=== PATIENT | female | born 1960 | race Caucasian/White ===

== ENCOUNTER 2024-05-20 09:43 | Outpatient (RCR) | payer MEDICARE, MEDICAID, SELFPAY ==
[2024-05-17 12:13] LABS: Basophils # (Auto) 0.1 Thou/mm3 (0.0-0.2); Basophils % (Auto) 1 % (0-2.5); Eosinophils # (Auto) 0.3 Thou/mm3 (0.0-0.5); Eosinophils % (Auto) 3 % (0-10); Hematocrit 40.7 % (36.0-46.0); Hemoglobin 13.5 g/dL (12.0-16.0); Immature Granulocytes % (Auto) 0 % (0-0); Immature Granulocytes Auto 0.02 Thou/mm3 (0.00-0.00); Lymphocytes # (Auto) 1.8 Thou/mm3 (1.0-4.8); Lymphocytes % (Auto) 24 % (10-50); Mean Corpuscular HGB Conc 33.2 g/dl (31.0-37.0); Mean Corpuscular Hemoglobin 29.9 pg (25.0-35.0); Mean Corpuscular Volume 90 fL (80-100); Monocytes # (Auto) 0.6 Thou/mm3 (0.0-0.8); Monocytes % (Auto) 8 % (0-12); Neutrophils # (Auto) 4.7 Thou/mm3 (1.8-7.7); Neutrophils % (Auto) 63 % (37-80); Nucleated Red Blood Cell % 0 /100 WBC (0); Platelet Count 239 Thou/mm3 (140-440); Red Blood Count 4.51 Miln/mm3 (4.00-5.20); White Blood Count 7.4 Thou/mm3 (3.6-11.0)
[2024-05-17 12:31] LABS: Alanine Aminotransferase 19 U/L (10-49); Albumin, Serum 4.7 gm/dL (3.4-4.8); Alkaline Phosphatase 73 U/L (46-116); Anion Gap 8 (7-16); Aspartate Amino Transferase 28 U/L (0-34); BUN/Creatinine Ratio 16 Ratio (12-20); Bilirubin,Total 0.6 mg/dL (0.3-1.2); Blood Urea Nitrogen 26 mg/dL (9-23); Carbon Dioxide 24.3 mMol/L (20.0-31.0); Chloride 105 mMol/L (98-107); Creatinine (Component) 1.6 mg/dL (0.6-1.3); Globulin 2.4 gm/dL (2.3-3.5); Glucose 83 mg/dL (74-106); LDH (Lactate Dehydrogenase) 246 U/L (120-246); Osmolality,Calculated 277 (275-295); Potassium 3.9 mMol/L (3.4-5.1); Sodium 137 mMol/L (136-145); Total Protein 7.1 gm/dL (5.7-8.2); eGFR 36 See Note
[2024-05-17 13:40] LABS: Sed Rate (ESR) 17 mm/hr (0-30)
== END 2024-06-15 23:59 | disposition home or self-care (01) ==
LOC: SCTC 09:43
PROVIDERS: PCP Physician Assistant Medical; Referring Provider Internal Medicine Hematology & Oncology; Visit Provider Internal Medicine Hematology & Oncology
DX: Z08 Encounter for follow-up examination after completed treatment for malignant neoplasm (principal); Z85.72 Personal history of non-Hodgkin lymphomas; Z92.21 Personal history of antineoplastic chemotherapy
CPT/HCPCS: 36591; 80053; 83615; 85025; 85652; 99212; A4216; J1642; G0463

== ENCOUNTER 2024-11-18 10:19 | Outpatient (RCR) | payer MEDICARE, MEDICAID, SELFPAY ==
[2024-11-15 10:45] LABS: Basophils # (Auto) 0.1 Thou/mm3 (0.0-0.2); Basophils % (Auto) 1 % (0-2.5); Eosinophils # (Auto) 0.4 Thou/mm3 (0.0-0.5); Eosinophils % (Auto) 6 % (0-10); Hematocrit 38.6 % (36.0-46.0); Hemoglobin 13.2 g/dL (12.0-16.0); Immature Granulocytes % (Auto) 0 % (0-0); Immature Granulocytes Auto 0.01 Thou/mm3 (0.00-0.00); Lymphocytes # (Auto) 1.5 Thou/mm3 (1.0-4.8); Lymphocytes % (Auto) 22 % (10-50); Mean Corpuscular HGB Conc 34.2 g/dl (31.0-37.0); Mean Corpuscular Hemoglobin 30.8 pg (25.0-35.0); Mean Corpuscular Volume 90 fL (80-100); Monocytes # (Auto) 0.7 Thou/mm3 (0.0-0.8); Monocytes % (Auto) 10 % (0-12); Neutrophils # (Auto) 4.2 Thou/mm3 (1.8-7.7); Neutrophils % (Auto) 61 % (37-80); Nucleated Red Blood Cell % 0 /100 WBC (0); Platelet Count 212 Thou/mm3 (140-440); RDW Standard Deviation 44.6 fL (36.4-46.3); Red Blood Count 4.29 Miln/mm3 (4.00-5.20); White Blood Count 6.9 Thou/mm3 (3.6-11.0)
[2024-11-15 11:20] LABS: Alanine Aminotransferase 22 U/L (10-49); Albumin, Serum 4.4 gm/dL (3.4-4.8); Albumin/Globulin Ratio 1.8 (1.2-2.2); Alkaline Phosphatase 78 U/L (46-116); Anion Gap 10 (7-16); Aspartate Amino Transferase 28 U/L (0-34); BUN/Creatinine Ratio 15 Ratio (12-20); Bilirubin,Total 0.8 mg/dL (0.3-1.2); Blood Urea Nitrogen 25 mg/dL (9-23); Calcium 9.3 mg/dL (8.3-10.6); Calcium (Corrected) 9.3 mg/dL (8.5-10.1); Carbon Dioxide 25.2 mMol/L (20.0-31.0); Chloride 106 mMol/L (98-107); Creatinine (Component) 1.7 mg/dL (0.6-1.3); Globulin 2.4 gm/dL (2.3-3.5); Glucose 95 mg/dL (74-106); LDH (Lactate Dehydrogenase) 256 U/L (120-246); Osmolality,Calculated 285 (275-295); Sodium 141 mMol/L (136-145); Total Protein 6.8 gm/dL (5.7-8.2); Uric Acid 8.2 mg/dL (3.1-7.8); eGFR 33 See Note
--- NOTE | 2024-11-18 15:48 | CTCFLWUP_ITS ---
Patient: TRACY MALLORY : 1960 Page 2 of 2 FOLLOW UP NOTE DATE OF SERVICE: 11/18/2024 NAME: TRACY MALLORY ACCOUNT: [id number] : 1960 AGE: 64 INTERVAL HISTORY: Visit summary Tracy Mallory, a patient with non-Hodgkin lymphoma diagnosed in 2005 and 2010, presented for routine follow-up. Her history includes treatment with R-CHOP, bendamustine, and Rituxan, with severe reactions to Rituxan requiring slow administration. She has been in remission for 14 years with no new lymphoma symptoms. She has a chemoport placed in 2010 that requires flushing every 6 months. 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 The plan includes continued port maintenance, monitoring for lymphoma symptoms, and follow-up in 6 months. Chief Complaint Routine follow-up for non-Hodgkin lymphoma in remission, port maintenance History of Present Illness Tracy Mallory is a patient with a history of non-Hodgkin lymphoma, diagnosed in 2005 and 2010, who presents for follow-up. The patient is currently in remission for 14 years after treatment with chemotherapy, including R-CHOP, bendamustine, and Rituxan. The patient reports no new lymphoma symptoms such as night sweats, appetite changes, or weight loss. They have a chemoport that was placed in 2010, which is flushed every 6 months. The port does not cause any discomfort, but the patient is aware of the potential risks associated with long-term port placement, including blood clots and infections. The patient has a history of severe reactions to Rituxan, including shivering. They are also followed by a caretaker grounds, Dr. Engel, due to high potassium levels and dietary restrictions related to kidney function, which may be a result of previous chemotherapy effects. The patient's veins were damaged before port placement, making the port a safer option for chemotherapy administration. The patient's overall health status appears stable, with no reported changes in functioning or new symptoms. They continue to adhere to their follow-up schedule and port maintenance regimen. Medical History - Non-Hodgkin lymphoma, diagnosed in 2010 - Non-Hodgkin lymphoma, diagnosed in 2005 - Kidney function issues due to chemotherapy effects - High potassium levels Surgical History - Chemoport placement in 2010 Medications and Supplements - R-CHOP - Used for non-Hodgkin lymphoma treatment in 2005 and 2011 - Bendamustine - Used for non-Hodgkin lymphoma treatment - Rituxan - Used for non-Hodgkin lymphoma treatment - Severe reactions including shivering - Administered slowly over 6 hours to prevent reactions Allergies - Rituxan (rituximab) causes severe reactions, including shivering Social History - Diet: Follows dietary restrictions due to high potassium levels Review of Systems General: Negative for night sweats, appetite changes, weight loss. ONCOLOGY HISTORY: DIAGNOSIS: History of non-Hodgkin's lymphoma (November 2005), (2010), she was treated chemotherapy both times. CRF with a creatinine of 1.5 and EGFR of 39. Currently being followed by Dr. Koehler REASON FOR TODAY?S VISIT: This is office follow-up visit. Ms. Mallory is here at [facility]. She is clinically doing very well. Denies any complaints. Denies any cough, chest pain, abdominal pain or leg cramps. [facility] According to Ms. Mallory they are normal. She denies any fevers or night sweats. Denies any weight loss or loss of appetite. Again she refused to have screening colonoscopy. She gets Chemo-Port flushed every 3 months. Wants to keep the Chemo-Port. DATE OF DIAGNOSIS: STAGE/TNM: TREATMENT HISTORY: Care?Plan Start?Date Cycle Day Intent HISTORY OF PRESENT ILLNESS: Tracy Mallory is a 64-year-old ENG speaking Unknown female with following history. November 2005: She was diagnosed with non-Hodgkin's lymphoma presented as a mass lesion in the left groin. Patient was treated with R-CHOP chemotherapy. 2010: Patient was found to have recurrence of her low-grade lymphoma/chronic lymphocytic leukemia in the right side of the neck. She was treated with Bendamustine and rituximab. Since then she was advised to keep her Chemo-Port. She was getting Chemo-Port flushes every 3 months in [place]. Recently due to insurance changes she made an appointment in our clinic for Chemo-Port flush. 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 amlodipine - 5 mg 1 tab Daily 2. cyanocobalamin (vitamin B-12) - 1,000 mcg 1 tab Daily 3. Lokelma - 10 gram 1 As directed 4. Proventil - 1 As directed 5. Clotilde-Maximino - 0.8 mg 1 tab Daily 6. simvastatin - 20 mg 1 tab Daily 7. sodium bicarbonate - 325 mg 1 tab Twice a Day 8. Vitamin D2 - 1,250 mcg (50,000 unit) 1 Capsule Monthly 9. zinc - 50 mg 1 tab Daily Medications Last Reconciled by Sada Pozo MA on 11/18/2024 ALLERGIES: No Known Drug Allergies REVIEW OF SYSTEMS: A complete 14-point review of systems was performed and is negative except as noted in interval history. PHYSICAL EXAMINATION: VITAL SIGNS: Temperature?98, B/P?170/107, Oxygen?Saturation?97% Weight?152?lbs (Change?since?11/15/24:?-0.4?lbs) PAIN: 0 - No pain ECOG Performance Status: 0 - Asymptomatic and fully active GENERAL APPEARANCE: Appears well, in no apparent distress, appropriately interactive. HEENT: Normocephalic, no temporal wasting, normal conjunctiva, no scleral icterus, normal hearing, lips without lesions, neck normal range of motion. CARDIOVASCULAR: Not assessed. PULMONARY: Normal respiratory effort, no respiratory distress or use of accessory muscles, speaking in full sentences, no tachypnea. EXTREMITIES: No pedal edema or cyanosis. SKIN: Normal skin appearance. NEUROLOGIC: Alert and oriented x4. PSHYCHIATRIC: Appropriate affect, mood normal, behavior normal, intact thought and speech. No lymphadenopathy LABORATORY DATA: I have personally reviewed and interpreted each of the patient?s relevant lab tests, abnormal findings are below: Date 05/17/24 11/15/24 ??WHITE?BLOOD?COUNT?(Thou/mm3) ? 6.9 ??RED?BLOOD?COUNT?(Miln/mm3) ? 4.29 ??HEMOGLOBIN?(gm/dl) ? 13.2 ??HEMATOCRIT?(%) ? 38.6 ??PLATELET?COUNT?(Thou/mm3) ? 212 ??NEUTROPHILS?%,?AUTO?(%) ? 61 ??LYMPH?%,?AUTO?(%) ? 22 ??NEUTROPHILS,?AUTO?(Thou/mm3) ? 4.2 ??GLUCOSE,RANDOM?(mg/dL) 83 95 ??BLOOD?UREA?NITROGEN?(mg/dL) 26?H 25?H ??CREATININE?(mg/dL) 1.60?H 1.70?H ??SODIUM?(mmol/L) 137 141 ??POTASSIUM?(mmol/L) 3.9 4.0 ??CHLORIDE?(mmol/L) 105 106 ??CrCl?(CandG)?(ml/min) 37.09 36.00 ??AST/SGOT?(Unit/L) 28 28 ??ALT/SGPT?(Unit/L) 19 22 ??ALKALINE?PHOSPHATASE?(Unit/L) 73 78 ??BILIRUBIN,?TOTAL?(mg/dL) 0.6 0.8 ??PROTEIN?TOTAL?(gm/dl) 7.1 6.8 ??ALBUMIN,?SERUM?(gm/dl) 4.7 4.4 ??GLOBULIN?(gm/dl) 2.4 2.4 ??ALBUMIN/GLOBULIN?RATIO 2.0 1.8 ??CALCIUM,?SERUM?(mg/dL) 10.0 9.3 ??CALCIUM?SERUM?(CORRECTED)?(mg/dL) 10.0 9.3 ??LDH,?TOTAL?(Unit/L) ? 256?H ASSESSMENT/PLAN: 1. Patient had non-Hodgkin's lymphoma in 2005 treated with R-CHOP chemotherapy. She had recurrence since 2010. Again treated with Bendamustine and rituximab based chemotherapy at [facility] in [place]. Tracy Mallory, with a history of non-Hodgkin lymphoma diagnosed in 2005 and 2010, treated with chemotherapy, presenting for follow-up after 14 years in remission. Non-Hodgkin Lymphoma, in remission Assessment: Patient has a history of non-Hodgkin lymphoma diagnosed in 2005 and 2010, treated with chemotherapy both times. Previous treatments included R-CHOP, followed by bendamustine and Rituxan. The patient has been in remission for 14 years, which is associated with a promising survival rate. Currently, there are no new lymphoma symptoms such as night sweats, appetite changes, or weight loss. The patient cannot receive further chemotherapy, but newer drugs like ibrutinib are available if the cancer returns. Long-term remission treatments like cardiotherapy would be considered in case of recurrence. Plan: - Continue monitoring for lymphoma symptoms (night sweats, appetite changes, weight loss) - Follow up in 6 months - Consider ibrutinib or cardiotherapy if cancer returns (not currently indicated) Chemoport management Assessment: Patient has had a chemoport in place since 2010 for safer chemotherapy administration due to previous vein damage. The port is flushed every 6 months. While it currently does not cause discomfort, there are risks of blood clots and infections. Long-term presence of the port may complicate future removal if needed. Plan: - Continue port flushing every 3 months - Monitor for signs of port-related complications (blood clots, infections) - Ensure only oncology nurses handle the port Patient do not agree to remove port even though understanding risk History of severe Rituxan reactions Assessment: Patient has a history of severe reactions to Rituxan, including shivering. This information is crucial for potential future treatments. Plan: - If Rituxan is needed in the future, administer slowly over 6 hours to prevent reactions Chemotherapy-induced nephrotoxicity Assessment: Patient is followed by a caretaker grounds, Dr. Engel, due to chemotherapy effects on kidney function. The patient has high potassium levels and dietary restrictions. Plan: - Order laboratory tests (specifics not mentioned) - Continue follow-up with caretaker grounds for kidney function monitoring - Maintain dietary restrictions as advised by caretaker grounds CRF currently being followed by Dr. Koehler No clinical evidence of recurrence of lymphoma's. Patient again does not want to have a screening colonoscopy. Patient do not want to remove port catheter I will see her back in clinic in 6 months with labs for follow-up. ORDERS: Order # Description [id number] Comprehensive Metabolic Panel - 12 + CBC with Auto Diff + Uric Acid, Serum [id number] Lactate Dehydrogenase (LDH) [id number] Follow Up 6 Month RETURN TO CLINIC: 6 months BILLING AND COMPLIANCE: I reviewed external records from providers outside my specialty as summarized above. I spent a total of 50 minutes on this patient?s care on the day of their visit excluding time spent related to any billed procedures. This time includes time spent with the patient as well as time spent documenting in the medical record, reviewing patients records and tests, obtaining history, placing orders, communicating with other healthcare professionals, counseling the patient, family or caregiver, and/or care coordination for the diagnoses above. Electronically Signed by: Naveen Dover MD T: 3:46 PM CC: PCP: Key Adhikari Referring: Key Adhikari This document was completed utilizing speech recognition software. Grammatical errors, random word insertions, pronoun errors, and incomplete sentences are an occasional consequence of this system due to software limitations, ambient noise, and hardware issues. Any formal questions or concerns about the content, text or information contained within the body of this dictation should be directly addressed to the provider for clarification.
== END 2024-12-14 23:59 | disposition home or self-care (01) ==
LOC: SCTC 10:19
PROVIDERS: PCP Physician Assistant Medical; Referring Provider Physician Assistant Medical; Visit Provider Internal Medicine Hematology & Oncology
DX: C85.9A Non-Hodgkin lymphoma, unspecified, in remission (principal); Z92.21 Personal history of antineoplastic chemotherapy
CPT/HCPCS: 36591; 80053; 83615; 84550; 85025; 99212; A4216; J1642; G0463

== ENCOUNTER 2025-05-21 10:46 | Outpatient (RCR) | payer MEDICARE, MEDICAID, SELFPAY ==
[2025-05-20 10:04] LABS: Basophils # (Auto) 0.1 Thou/mm3 (0.0-0.2); Basophils % (Auto) 1 % (0-2.5); Eosinophils # (Auto) 0.3 Thou/mm3 (0.0-0.5); Eosinophils % (Auto) 4 % (0-10); Hematocrit 40.2 % (36.0-46.0); Hemoglobin 13.4 g/dL (12.0-16.0); Immature Granulocytes Auto 0.02 Thou/mm3 (0.00-0.00); Lymphocytes # (Auto) 1.6 Thou/mm3 (1.0-4.8); Lymphocytes % (Auto) 23 % (10-50); Mean Corpuscular HGB Conc 33.3 g/dl (31.0-37.0); Mean Corpuscular Hemoglobin 29.8 pg (25.0-35.0); Mean Corpuscular Volume 90 fL (80-100); Monocytes # (Auto) 0.5 Thou/mm3 (0.0-0.8); Monocytes % (Auto) 8 % (0-12); Neutrophils # (Auto) 4.4 Thou/mm3 (1.8-7.7); Neutrophils % (Auto) 64 % (37-80); Nucleated Red Blood Cell # 0.00 Thou/mm3 (0.00-0.00); Nucleated Red Blood Cell % 0 /100 WBC (0); Platelet Count 245 Thou/mm3 (140-440); RDW Standard Deviation 44.4 fL (36.4-46.3); Red Blood Count 4.49 Miln/mm3 (4.00-5.20); White Blood Count 6.9 Thou/mm3 (3.6-11.0)
[2025-05-20 10:21] LABS: Uric Acid 8.8 mg/dL (3.1-7.8)
[2025-05-20 11:14] LABS: Alanine Aminotransferase 16 U/L (10-49); Albumin, Serum 4.5 gm/dL (3.4-4.8); Albumin/Globulin Ratio 2.0 (1.2-2.2); Alkaline Phosphatase 77 U/L (46-116); Anion Gap 11 (7-16); Aspartate Amino Transferase 27 U/L (0-34); BUN/Creatinine Ratio 12 Ratio (12-20); Bilirubin,Total 0.5 mg/dL (0.3-1.2); Blood Urea Nitrogen 21 mg/dL (9-23); Calcium 9.8 mg/dL (8.3-10.6); Calcium (Corrected) 9.8 mg/dL (8.5-10.1); Carbon Dioxide 25.3 mMol/L (20.0-31.0); Chloride 105 mMol/L (98-107); Creatinine (Component) 1.8 mg/dL (0.6-1.3); Globulin 2.3 gm/dL (2.3-3.5); Glucose 90 mg/dL (74-106); Osmolality,Calculated 284 (275-295); Potassium 4.1 mMol/L (3.4-5.1); Sodium 141 mMol/L (136-145); Total Protein 6.8 gm/dL (5.7-8.2); eGFR 31 See Note
[2025-05-20 12:35] LABS: LDH (Lactate Dehydrogenase) 213 U/L (120-246)
--- NOTE | 2025-05-21 12:14 | CTCFLWUP_ITS ---
Patient: TRACY MALLORY : 1960 Page 3 of 5 FOLLOW UP NOTE DATE OF SERVICE: 05/21/2025 NAME: TRACY MALLORY ACCOUNT: [id number] : 1960 AGE: 64 INTERVAL HISTORY: Visit summary Tracy Mallory, a patient with non-Hodgkin lymphoma diagnosed in 2005 and 2010, presented for routine follow-up. Her history includes treatment with R-CHOP, bendamustine, and Rituxan, with severe reactions to Rituxan requiring slow administration. She has been in remission for 14 years with no new lymphoma symptoms. She has a chemoport placed in 2010 that requires flushing every 6 months. 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 Patient have elevated uric acid but no B symptoms. Patient to have complaints of fatigue and tiredness. Will get PET CT scan. Patient also have uterine prolapse and need referral to gynecology as she has difficulty urinating. Patient also have pain in the pelvis Chief Complaint Fatigue and tiredness and pain while urination. Patient sees mass hanging out of her vagina and make it difficult for her to urinate. History of Present Illness Tracy Mallory is a patient with a history of non-Hodgkin lymphoma, diagnosed in 2005 and 2010, who presents for follow-up. The patient is currently in remission for 14 years after treatment with chemotherapy, including R-CHOP, bendamustine, and Rituxan. The patient reports fatigue and tiredness but no night sweats, appetite changes, or weight loss. They have a chemoport that was placed in 2010, which is flushed every 6 months. The port does not cause any discomfort, but the patient is aware of the potential risks associated with long-term port placement, including blood clots and infections. The patient has a history of severe reactions to Rituxan, including shivering. They are also followed by a radiation protection specialist, Dr. Engel, due to high potassium levels and dietary restrictions related to kidney function, which may be a result of previous chemotherapy effects. The patient's veins were damaged before port placement, making the port a safer option for chemotherapy administration. Medical History - Non-Hodgkin lymphoma, diagnosed in 2010 - Non-Hodgkin lymphoma, diagnosed in 2005 - Kidney function issues due to chemotherapy effects - High potassium levels Surgical History - Chemoport placement in 2010 Medications and Supplements - R-CHOP - Used for non-Hodgkin lymphoma treatment in 2005 and 2011 - Bendamustine - Used for non-Hodgkin lymphoma treatment - Rituxan - Used for non-Hodgkin lymphoma treatment - Severe reactions including shivering - Administered slowly over 6 hours to prevent reactions Allergies - Rituxan (rituximab) causes severe reactions, including shivering Social History - Diet: Follows dietary restrictions due to high potassium levels Review of Systems General: Negative for night sweats, appetite changes, weight loss. ONCOLOGY HISTORY: DIAGNOSIS: History of non-Hodgkin's lymphoma (November 2005), (2010), she was treated chemotherapy both times. CRF with a creatinine of 1.5 and EGFR of 39. Currently being followed by Dr. Koehler DATE OF DIAGNOSIS: November 2005 and then 2010 reoccurrence STAGE/TNM: Stage IV in remission TREATMENT HISTORY: Care?Plan Start?Date Cycle Day Intent HISTORY OF PRESENT ILLNESS: Tracy Mallory is a 64-year-old ENG speaking Unknown female with following history. November 2005: She was diagnosed with non-Hodgkin's lymphoma presented as a mass lesion in the left groin. Patient was treated with R-CHOP chemotherapy. 2011: Patient was found to have recurrence of her low-grade lymphoma/chronic lymphocytic leukemia in the right side of the neck. She was treated with Bendamustine and rituximab. Since then she was advised to keep her Chemo-Port. She was getting Chemo-Port flushes every 3 months in [place]. Recently due to insurance changes she made an appointment in our clinic for Chemo-Port flush. 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 amlodipine - 5 mg 1 tab Daily 2. cyanocobalamin (vitamin B-12) - 1,000 mcg 1 tab Daily 3. Lokelma - 10 gram 1 As directed 4. Proventil - 1 As directed 5. Clotilde-Maximino - 0.8 mg 1 tab Daily 6. simvastatin - 20 mg 1 tab Daily 7. sodium bicarbonate - 325 mg 1 tab Twice a Day 8. Vitamin D2 - 1,250 mcg (50,000 unit) 1 Capsule Monthly 9. zinc - 50 mg 1 tab Daily Medications Last Reconciled by Sada Moreno MD on 05/21/2025 ALLERGIES: No Known Drug Allergies REVIEW OF SYSTEMS: A complete 14-point review of systems was performed and is negative except as noted in interval history. PHYSICAL EXAMINATION: VITAL SIGNS: PAIN: 0 - No pain ECOG Performance Status: 1 - Symptomatic; ambulatory; restricted in strenuous activity GENERAL APPEARANCE: Appears well, in no apparent distress, appropriately interactive. HEENT: Normocephalic, no temporal wasting, normal conjunctiva, no scleral icterus, normal hearing, lips without lesions, neck normal range of motion. CARDIOVASCULAR: Not assessed. PULMONARY: Normal respiratory effort, no respiratory distress or use of accessory muscles, speaking in full sentences, no tachypnea. EXTREMITIES: No pedal edema or cyanosis. SKIN: Normal skin appearance. NEUROLOGIC: Alert and oriented x4. PSHYCHIATRIC: Appropriate affect, mood normal, behavior normal, intact thought and speech. No lymphadenopathy LABORATORY DATA: I have personally reviewed and interpreted each of the patient?s relevant lab tests, abnormal findings are below: Date 11/15/24 05/20/25 ??WHITE?BLOOD?COUNT?(Thou/mm3) 6.9 6.9 ??RED?BLOOD?COUNT?(Miln/mm3) 4.29 4.49 ??HEMOGLOBIN?(gm/dl) 13.2 13.4 ??HEMATOCRIT?(%) 38.6 40.2 ??PLATELET?COUNT?(Thou/mm3) 212 245 ??NEUTROPHILS?%,?AUTO?(%) 61 64 ??LYMPH?%,?AUTO?(%) 22 23 ??NEUTROPHILS,?AUTO?(Thou/mm3) 4.2 4.4 ??GLUCOSE,RANDOM?(mg/dL) ? 90 ??BLOOD?UREA?NITROGEN?(mg/dL) ? 21 ??CREATININE?(mg/dL) ? 1.80?H ??SODIUM?(mmol/L) ? 141 ??POTASSIUM?(mmol/L) ? 4.1 ??CHLORIDE?(mmol/L) ? 105 ??CrCl?(CandG)?(ml/min) ? 33.91 ??AST/SGOT?(Unit/L) ? 27 ??ALT/SGPT?(Unit/L) ? 16 ??ALKALINE?PHOSPHATASE?(Unit/L) ? 77 ??BILIRUBIN,?TOTAL?(mg/dL) ? 0.5 ??PROTEIN?TOTAL?(gm/dl) ? 6.8 ??ALBUMIN,?SERUM?(gm/dl) ? 4.5 ??GLOBULIN?(gm/dl) ? 2.3 ??ALBUMIN/GLOBULIN?RATIO ? 2.0 ??CALCIUM,?SERUM?(mg/dL) ? 9.8 ??CALCIUM?SERUM?(CORRECTED)?(mg/dL) ? 9.8 ??LDH,?TOTAL?(Unit/L) ? 213 ASSESSMENT/PLAN: 1. Patient had non-Hodgkin's lymphoma in 2005 treated with R-CHOP chemotherapy. She had recurrence since 2010. Again treated with Bendamustine and rituximab based chemotherapy at [facility] in [place]. Tracy Mallory, with a history of non-Hodgkin lymphoma diagnosed in 2005 and 2010, treated with chemotherapy, presenting for follow-up after 14 years in remission. Non-Hodgkin Lymphoma, in remissionPatient has a history of non-Hodgkin lymphoma diagnosed in 2005 and 2010, treated with chemotherapy both times. Previous treatments included R-CHOP, followed by bendamustine and Rituxan. The patient has been in remission for 14 years, which is associated with a promising survival rate. Currently, there are no new lymphoma symptoms such as night sweats, appetite changes, or weight loss. The patient cannot receive further chemotherapy, but newer drugs like ibrutinib are available if the cancer returns. Long-term remission treatments like cardiotherapy would be considered in case of recurrence. - Patient have elevated uric acid and fatigue and tiredness -Will get imaging to evaluate for any reoccurrence. PET CT scan ordered to evaluate for lymphoma recurrence #2 uterine prolapse Symptomatic uterine prolapse Refer to gynecology. Patient prefer female physician so we will refer to Dr. Llamas in [place] ORDERS: Order # Description [id number] Comprehensive Metabolic Panel - 12 + CBC with Auto Diff + CA [id number] PET/CT of Skull to mid-thigh for Restaging [id number] Uric Acid, Serum [id number] Lactate Dehydrogenase (LDH) [id number] Follow Up 2 Months RETURN TO CLINIC: I reviewed the diagnosis, prognosis, and recommended treatment/procedure options with the patient (and/or their legal lifeline representatives), including the potential benefits, risks, side effects and alternative therapies. We also discussed the option of no treatment and the possibility of clinical trial participation, if applicable. All questions were addressed, and they demonstrated understanding. They provided informed consent to proceed with the proposed plan of care. BILLING AND COMPLIANCE: I reviewed external records from providers outside my specialty as summarized above. I spent a total of 50 minutes on this patient?s care on the day of their visit excluding time spent related to any billed procedures. This time includes time spent with the patient as well as time spent documenting in the medical record, reviewing patients records and tests, obtaining history, placing orders, communicating with other healthcare professionals, counseling the patient, family or caregiver, and/or care coordination for the diagnoses above. Electronically Signed by: Naveen Dover MD T: 12:12 PM CC: PCP: Key Adhikari Referring: Key Adhikari This document was completed utilizing speech recognition software. Grammatical errors, random word insertions, pronoun errors, and incomplete sentences are an occasional consequence of this system due to software limitations, ambient noise, and hardware issues. Any formal questions or concerns about the content, text or information contained within the body of this dictation should be directly addressed to the provider for clarification.
== END 2025-06-15 23:59 | disposition home or self-care (01) ==
LOC: SCTC 10:46
PROVIDERS: PCP Physician Assistant Medical; Referring Provider Physician Assistant Medical; Visit Provider Internal Medicine Hematology & Oncology
DX: Z08 Encounter for follow-up examination after completed treatment for malignant neoplasm (principal); Z85.72 Personal history of non-Hodgkin lymphomas; Z92.21 Personal history of antineoplastic chemotherapy; R53.83 Other fatigue; E79.0 Hyperuricemia without signs of inflammatory arthritis and tophaceous disease; N81.4 Uterovaginal prolapse, unspecified
CPT/HCPCS: 36591; 80053; 83615; 84550; 85025; 99212; A4216; J1642; G0463

== ENCOUNTER → 2025-06-24 | Outpatient (CLI) | payer MEDICARE, MEDICAID, SELFPAY ==
--- NOTE | 2025-06-24 10:15 | XR_ITS ---
EXAMINATION: PET/CT FUSION SKULL TO THIGH EXAM DATE AND TIME: June 24, 2025, 11:27 a.m., comparison PET/CT scan September 11, 2020 INDICATIONS: Diagnosis non-Hodgkin's lymphoma, restaging post treatment CTDI:vol (mGy) 4.92 DLP: (mGycm) 449.34 PROCEDURE: 17.3 mCi FDG was administered intravenously To allow for distribution and uptake of radiotracer, the patient was allowed to rest quietly in a shielded room. Imaging was performed on an integrated 16-slice PET/CT scanner, with scanning from the skull base to the mid thigh. Serum blood glucose at the time of the injection was measured 120 mg/dL. CT scanning was performed without oral or intravenous contrast material. FINDINGS: Head and Neck: There is no amie hypermetabolism in the neck. The visualized portions of the brain are normal in appearance on CT. Chest: There is no amie hypermetabolism in the chest. There are no pulmonary nodules. Abdomen and Pelvis: There is no amie hypermetabolism in retroperitoneal or pelvic chains. The spleen is normal in size and FDG avidity. Musculoskeletal: Marrow uptake is within normal range. IMPRESSION: No interval recurrent tumor or metastatic disease
== END | disposition home or self-care (01) ==
PROVIDERS: PCP Internal Medicine Hematology & Oncology; Referring Provider Internal Medicine Hematology & Oncology; Visit Provider Internal Medicine Hematology & Oncology
DX: C85.85 Other specified types of non-Hodgkin lymphoma, lymph nodes of inguinal region and lower limb (principal); C85.80 Other specified types of non-Hodgkin lymphoma, unspecified site
CPT/HCPCS: 78815; A9552